=== PATIENT | female | born 1990 | race Caucasian/White ===

== ENCOUNTER 2020-10-19 18:38 | Emergency (ER) | payer OTHER, SELFPAY ==
[2020-10-19 19:02] VITALS: BP 164/98; PULSE 87; RESP 16; TEMP 37.1; O2SAT 98; BMI 34.9
--- NOTE | 2020-10-19 19:35 | HMH.EDUTC ---
[facility] [place] Disposition Clinical Impression: Encounter for laboratory testing for COVID-19 virus Disposition: Home, Self-Care Condition on Discharge: Good Instructions: Preventing the Spread of Coronavirus Discharge Instructions Additional Instructions: *Monitor Temp, Over the counter Motrin or Tylenol as directed/as needed Tylenol every 4 hours and Motrin every 6 hours (as long as your family doctor has told you that you can take it) for fever or pain. and straight to ER if unable to lower temp less than 101.0 after medication given *Warm salt water gargles may help to soothe the throat *Throat Lozenges *Warm fluids like tea with honey may help to soothe the throat *Sleep elevated *Humidifier/Vaporizer Follow up IMMEDIATELY for new or worsening symptoms or no Noticeable improvement over the next 48-72 hours. 911 for difficulty breathing or swallowing You were tested for today for COVID19 your test result should be back in the next 24-48 hours, you may call to the [facility] to see if your test results are back in the next 48 hours [phone] [facility] hours are 9am-9pm You was given a handout with instructions for Self Quarantine and Self isolation for while you wait on test results and what to do if they are positive If you are positive the Health Dept will be contacting you also Referrals: PCP,No [Primary Care Provider] - As needed Time of Disposition: 19:36 Medical Decision Making - Larry Inquiry Pt receiving controlled substance: No Larry was queried for this patient: No Vital Signs: 10/19/20 19:02 Temperature 98.7 F Temperature Source Oral Pulse Rate [Right] 87 Respiratory Rate 16 Blood Pressure [Right Arm] 164/98 H Blood Pressure Mean [Right Arm] 120 Blood Pressure Source [Right Arm] Automatic Cuff Blood Pressure Position [Right Arm] Sitting 02 Sat by Pulse Oximetry 98 Oxygen Delivery Method Room Air Orders (Tests/Meds): ORDERS Category Date Time Status Covid-19 Nasal PCR Sendout [facility] 10/19/20 19:02 Ordered [facility] [place] HPI - General Stated complaint: covid test Time Seen by Provider: 10/19/20 19:36 Mode of Arrival: Ambulatory Source of Information: Patient Limitations: No Limitations Description of Symptoms (Recalled from Triage Doc. by RN): Pt advises she has felt bad for a couple of days and yesterday she lost her taste and smell HEENT Symptoms (Recalled from RN notes): Yes (covid symptoms) Resp Symptoms (Recalled from RN notes): No Skin Symptoms (Recalled from RN notes): No MS Symptoms (Recalled from RN notes): No Functional Status (Recalled from RN notes): na - History of Present Illness Provider Complaint: Patient state that she has had cold like symptoms and thought it was due to the weather change until yesterday when she lost her sense of taste and smell State that today she still wasnt able to taste or smell anything so she came in to get checked for COVID - Related Data Home Medications Medication Instructions Recorded Confirmed No Known Home Medications 10/19/20 10/19/20 Allergies Allergy/AdvReac Type Severity Reaction Status Date / Time lisinopril Allergy Verified 10/19/20 19:09 - Worker's Comp Is this a Worker's Comp case?: No [facility] History - Hepatitis A Screen Drug use history?: No High risk sexual behaviors?: No History of sexually transmitted infection?: No Currently employed?: No Childcare worker?: No Do you have indoor plumbing?: Yes Do you have electricity?: Yes Attestation statement:: This patient has been screened for Hepatitis A risk factors. I have reviewed the patient's past medical history: Yes ROS Obtained: Yes All systems reviewed & no additional complaints, Yes Systems reviewed as appropriate & no additional complaints - Constitutional Constitutional: Reports system reviewed and no additional complaints, except as docu, Reports body ache, Reports chills, Reports headache(s) - ENT Ears, Nose, Mouth, and Throat: Reports system reviewed
[2020-10-19 19:44] VITALS: BP 165/98; PULSE 85; RESP 16; TEMP 37; O2SAT 98
[2020-10-21 16:35] LABS: Covid-19 Nasal PCR Sendout Lex Positive
--- NOTE | 2020-10-21 17:16 | PC.NURSE ---
patient notified of positive covid test
== END 2020-10-19 19:44 | disposition home or self-care (01) ==
PROVIDERS: Emergency Provider Nurse Practitioner
DX: U07.1 COVID-19 (principal)
CPT/HCPCS: 99201; U0004